=== PATIENT | female | born 1950 | race Caucasian/White ===

== ENCOUNTER → 2021-02-24 | Outpatient (CLI) | payer MEDICARE, OTHER ==
[~2021-02-24] VITALS: Ht 162.6 cm; Wt 81.8 kg
[~2021-02-24] MED LIST: ACET-789 PO; ASP81CT PO; ATOR80TA PO; ATR20T PO; CALC-52 PO; DILT120C57 PO; FAMO10VI PO; LIDOCAINE 1% INJ 20 ML 20 ML VIAL INJ NR; METO25TA2 PO; MULT1CAP27 PO; OMEP40CA36 PO; RANO500T2 PO
--- NOTE | 2021-02-24 11:50 | Diagnostic Imaging Report ---
INDICATION: Left breast calcifications. Patient presents for stereotactic biopsy. DETAILS OF THE PROCEDURE: The patient was brought to the stereotactic suite and placed in the chair in a sitting upright position. The left breast was positioned lateral medial. The microcalcifications in the lower and outer aspect of the left breast were stereotactically localized. The skin of the left breast was then prepped and draped in the usual sterile fashion. A small amount of 1% lidocaine was utilized for local anesthesia. A total of four core biopsies was obtained of the calcifications utilizing an 8 gauge vacuum-assisted device. All images were reviewed on dedicated workstation. The specimen radiograph does show numerous calcifications within sample labeled #2. A marker clip was then deployed. The needle was removed and hemostasis was obtained using manual compression. The patient tolerated the procedure well. The post procedure mammogram demonstrates some migration of the marker clip towards the medial portion of the breast. IMPRESSION: Stereotactic biopsy of the left breast calcifications utilizing the vacuum-assisted device. Pathology results are currently pending. Dictated by: Dictated on workstation # [id number]
== END ==
LOC: RAD 07:59
PROVIDERS: ATTEND Family Medicine
DX: N63.20 Unspecified lump in the left breast, unspecified quadrant (principal)
CPT/HCPCS: 19081; A4648